=== PATIENT | female | born 1990 | race Caucasian/White ===

== ENCOUNTER 2018-01-03 13:42 | Emergency (ER) | payer OTHER ==
[~2018-01-03] VITALS: Ht 170.1 cm; Wt 74.8 kg
[~2018-01-03 13:42] MED LIST: ATIVAN0.5 MG PO; AUGMENTIN 875 M1 TAB PO; HYDROCODONE BIT1 T11 PO; NAPROSYN500 MG PO; PRENATAL1 TA1 PO; ZITHROMAX Z PA250 MG PO
[2018-01-03 14:54] LABS: BILIRUBIN NEGATIVE (NEGATIVE); BLOOD NEGATIVE (NEGATIVE); CLARITY SL CLOUDY (CLEAR); COLOR YELLOW (YELLOW); GLUCOSE NEGATIVE (NEGATIVE); KETONE NEGATIVE (NEGATIVE); LEUKO ESTERASE NEGATIVE (NEGATIVE); NITRITE NEGATIVE (NEGATIVE); UROBILINOGEN 0.2 E.U./dl (0.2-1.0)
[2018-01-03 15:03] LABS: URINE AMPHETAMINES < 1000 (1000ng/ml); URINE BARBITURATES < 200 (200ng/ml); URINE BENZODIAZEPINES < 200 (200ng/ml); URINE CANNABINOIDS (THC) > 50 (50ng/ml); URINE COCAINE < 300 (300ng/ml); URINE METHADONE < 300 (300ng/ml); URINE OPIATES < 300 (300ng/ml)
[2018-01-03 15:05] LABS: URINE PHENCYCLIDINE < 25 (25ng/ml)
[2018-01-03 15:08] LABS: BACTERIA 2+
[2018-01-03 15:18] LABS: BASO # 0.1 10*3/uL (0.0-0.1); BASO % 0.8 % (0.0-1.0); EOS # 0.2 10*3/uL (0.0-0.4); EOS % 1.7 % (1.0-4.0); HEMATOCRIT 37.3 % (37.0-47.0); HEMOGLOBIN 12.7 g/dl (12.0-16.0); LYMPH # 2.2 10*3/uL (1.3-4.4); LYMPH % 25.1 % (27.0-41.0); MEAN CELL VOLUME 86.5 fl (81.0-99.0); MEAN CORPUSCULAR HGB 29.5 pg (27.0-31.0); MEAN PLATELET VOLUME 10.4 fl (9.6-12.3); MONO # 0.3 10*3/uL (0.1-1.0); MONO % 3.6 % (3.0-9.0); NEUT # 5.9 10*3/uL (2.3-7.9); NEUT % 68.6 % (47.0-73.0); PLATELET COUNT AUTOMATED 312 10*3/uL (130-400); RED BLOOD COUNT 4.31 10*6/uL (4.10-5.10); RED CELL DISTRI WIDTH 12.8 % (0-14.5); WHITE BLOOD COUNT 8.7 10*3/uL (4.8-10.8)
[2018-01-03 15:40] LABS: ALBUMIN 3.7 gm/dl (3.1-4.5); ALKALINE PHOSPHATASE 53 U/L (45-117); BUN 12 mg/dl (7-24); CHLORIDE 104 mmol/L (98-107); CREATININE 0.68 mg/dL (0.55-1.02); POTASSIUM 3.9 mmol/L (3.5-5.1); SGOT/AST 12 IU/L (3-35); SGPT/ALT 24 U/L (12-78); SODIUM 139 mmol/L (136-145); TOTAL PROTEIN 7.7 gm/dL (6.4-8.2)
[2018-01-03 15:43] LABS: BETA-HCG, QUANT < 1.0 mIU/mL (1-3)
[2018-01-03] MEDS ORDERED: ATIVAN0.5 MG PO (19:30)
== END 2018-01-03 19:46 | disposition home or self-care (01) ==
LOC: ED 13:42
PROVIDERS: Emergency Medicine
DX: F32.9 Major depressive disorder, single episode, unspecified (principal); F41.1 Generalized anxiety disorder; Z91.040 Latex allergy status; Z79.899 Other long term (current) drug therapy

== ENCOUNTER 2022-07-26 05:20 | Emergency (ER) | payer OTHER ==
[~2022-07-26] VITALS: Ht 167.6 cm; Wt 63.5 kg
[2022-07-26] MEDS ORDERED: AMOX-CLAV 875-1 EACH PO (05:41)
== END 2022-07-26 05:46 | disposition home or self-care (01) ==
LOC: ED 05:20
DX: H66.92 Otitis media, unspecified, left ear (principal); Z91.040 Latex allergy status

== ENCOUNTER 2024-12-25 12:09 | Emergency (ER) | payer OTHER ==
[~2024-12-25] VITALS: Ht 157.4 cm; Wt 61.2 kg
[~2024-12-25 12:09] MED LIST changes: +AMOX-CLAV 875-1 EACH PO
[2024-12-25] MEDS ORDERED: Albuterol Sulf/Ipratropium 3 ML VIAL NEB ONE (12:35)
[2024-12-25] MEDS ORDERED: methylPREDNISolone sod succ 125 MG VIAL IV ONE (12:35)
[2024-12-25 12:38] LABS: BILIRUBIN Negative (Negative); BLOOD Negative (Negative); CLARITY Cloudy (Clear); COLOR Yellow (Yellow); GLUCOSE Negative (Negative); KETONE 2+ (Negative); LEUKO ESTERASE Trace (Negative); NITRITE Negative (Negative)
[2024-12-25 12:45] LABS: BASO # 0.1 10*3/uL (0.0-0.1); BASO % 0.7 % (0.0-1.0); EOS # 0.1 10*3/uL (0.0-0.4); EOS % 1.3 % (1.0-4.0); MEAN CELL VOLUME 85.1 fl (81.0-99.0); MEAN CORPUSCULAR HGB CONC 31.7 g/dl (33.0-37.0); MEAN PLATELET VOLUME 10.6 fl (9.6-12.3); MONO # 0.3 10*3/uL (0.1-1.0); NEUT # 5.2 10*3/uL (2.3-7.9); NEUT % 76.5 % (47.0-73.0); PLATELET COUNT AUTOMATED 320 10*3/uL (130-400); RED BLOOD COUNT 4.23 10*6/uL (4.10-5.10); RED CELL DISTRI WIDTH 17.2 % (0-14.5); WHITE BLOOD COUNT 6.7 10*3/uL (4.8-10.8)
[2024-12-25 12:45] LABS: URINE AMPHETAMINES Positive (1000ng/ml); URINE BARBITURATES Negative (200ng/ml); URINE BENZODIAZEPINES Positive (200ng/ml); URINE CANNABINOIDS (THC) Positive (50ng/ml); URINE COCAINE Negative (300ng/ml); URINE METHADONE Negative (300ng/ml); URINE OPIATES Negative (300ng/ml); URINE PHENCYCLIDINE Negative (25ng/ml)
[2024-12-25 12:46] LABS: BACTERIA 3+; MUCOUS 3+
[2024-12-25 13:04] LABS: ALKALINE PHOSPHATASE 69 U/L (46-116); BUN 10 mg/dl (9-23); CHLORIDE 106 mmol/L (98-107); CPK 28 U/L (34-171); POTASSIUM 3.2 mmol/L (3.4-5.1); SGPT/ALT 36 U/L (5-49); TOTAL PROTEIN 7.8 gm/dL (6.0-8.0)
[2024-12-25] MEDS ORDERED: Amoxicillin/Clavulanate Pota 875 MG TAB PO ONE (13:25)
[2024-12-25] MEDS ORDERED: POTASSIUM CHLORIDE 20 MEQ TAB PO ONE (13:30)
[2024-12-25] MEDS ORDERED: AMOX-CLAV 875-1 EACH PO (14:02)
[2024-12-25] MEDS ORDERED: ACETAMINOPHEN 325 MG TAB PO ONE (14:05)
== END 2024-12-25 14:15 | disposition home or self-care (01) ==
LOC: ED 12:09
PROVIDERS: Nurse Practitioner Family
DX: O99.340 Other mental disorders complicating pregnancy, unspecified trimester (principal); F43.20 Adjustment disorder, unspecified; O23.40 Unspecified infection of urinary tract in pregnancy, unspecified trimester; N39.0 Urinary tract infection, site not specified; O26.899 Other specified pregnancy related conditions, unspecified trimester; E87.6 Hypokalemia; F19.10 Other psychoactive substance abuse, uncomplicated; Z20.822 Contact with and (suspected) exposure to COVID-19; Z3A.00 Weeks of gestation of pregnancy not specified; Z79.899 Other long term (current) drug therapy; Z91.040 Latex allergy status

== ENCOUNTER 2025-07-19 14:23 | Emergency (ER) | payer OTHER ==
[~2025-07-19] VITALS: Ht 157.4 cm; Wt 59.0 kg
[2025-07-19] MEDS ORDERED: OFLOXACIN 10 ML10 M2 OT (14:54)
[2025-07-19] MEDS ORDERED: NAPROSYN500 MG PO (14:54)
[2025-07-19] MEDS ORDERED: Amoxicillin/Clavulanate Pota 875 MG TAB PO ONE (15:00)
[2025-07-19] MEDS ORDERED: Acetaminophen/Oxycodone 5 MG/325 MG TABLET PO ONE (15:05)
[2025-07-19] MEDS ORDERED: OFLOXACIN 0.3% 5 ML BOTTLE OT ONE (15:05)
== END 2025-07-19 15:31 | disposition home or self-care (01) ==
LOC: ED 14:23
DX: H66.91 Otitis media, unspecified, right ear (principal); H60.91 Unspecified otitis externa, right ear; F41.9 Anxiety disorder, unspecified; F32.A Depression, unspecified; Z87.440 Personal history of urinary (tract) infections; Z91.040 Latex allergy status